=== PATIENT | female | born 1980 | race Caucasian/White ===

== ENCOUNTER → 2020-11-28 | Outpatient (CLI) | payer OTHER ==
[~2020-11-28] MED LIST: ALLEGRA ALLERG180 MG; ASPI81CH; ASPI81CH PO; ATOR10; CETI10 PO; CETI5 PO; CETIRIZINE; Daily Multiple1 EACH; ESOM20; ESOM20 PO; GLYB2.5 PO; GLYB5 PO; Humulin N100 UNIT/1 SC; IBUP800 PO; INSUL100I SC; LABE100; LOSA50 PO; LOSARTAN POTASS50 MG; METF500; MOM; MULVITMINE; OXYACE5T PO; PANT40; SEASONALE; SIME80CH PO; TOUJEO SOL300 UNIT/1; XIGDUO XR 5 MG1 EAC1; [UNRECOGNIZED DRUG - OTHER]
== END | disposition home or self-care (01) ==
LOC: LAB SHORT 15:50
DX: D23.71 Other benign neoplasm of skin of right lower limb, including hip (principal)
CPT/HCPCS: 88305

== ENCOUNTER 2021-09-19 07:32 | Day surgery (SDC) | payer OTHER ==
[~2021-09-19] VITALS: Ht 175.3 cm; Wt 117.3 kg
== END 2021-09-19 09:44 | disposition home or self-care (01) ==
LOC: ORSCSDS 07:32
PROVIDERS: Internal Medicine Gastroenterology
PROC: 0D758ZZ Dilation of Esophagus, Via Natural or Artificial Opening Endoscopic (ICD-10-PCS; principal; 2021-09-19 08:45)
PROC: 0DB58ZX Excision of Esophagus, Via Natural or Artificial Opening Endoscopic, Diagnostic (ICD-10-PCS; principal; 2021-09-19 08:45)
PROC: 0DB68ZX Excision of Stomach, Via Natural or Artificial Opening Endoscopic, Diagnostic (ICD-10-PCS; principal; 2021-09-19 08:45)
DX: K20.0 Eosinophilic esophagitis (principal); K31.7 Polyp of stomach and duodenum; K22.2 Esophageal obstruction; K44.9 Diaphragmatic hernia without obstruction or gangrene; Z79.899 Other long term (current) drug therapy
CPT/HCPCS: 82947; 88305; J2250; J2405; J2704; J7120

== ENCOUNTER → 2024-04-28 | Outpatient (CLI) | payer OTHER | LOC: LAB 10:40 → LAB SHORT 10:40 | DX: R31.9 Hematuria, unspecified (principal) | CPT/HCPCS: 87077; 87086; 87186 ==